=== PATIENT | female | born 1985 | race African-American/Black ===

== ENCOUNTER 2016-09-26 17:11 | Emergency (ER) | payer BC ==
[~2016-09-26] VITALS: Ht 170.2 cm; Wt 92.0 kg
[2016-09-26] MEDS ORDERED: IBUPROFEN 800MG TABLET PO ONE (18:00)
[2016-09-26 18:14] VITALS: BP 128/81
== END 2016-09-26 19:57 | disposition home or self-care (01) ==
LOC: ER 18:05
DX: S90.122A Contusion of left lesser toe(s) without damage to nail, initial encounter (principal); W20.8XXA Other cause of strike by thrown, projected or falling object, initial encounter; Y93.89 Activity, other specified; Y92.89 Other specified places as the place of occurrence of the external cause; Y99.8 Other external cause status
CPT/HCPCS: 73630; 81025; 99284